=== PATIENT | male | born 1955 | race Caucasian/White ===

== ENCOUNTER 2023-05-10 05:27 | Emergency (ER) | payer BC ==
[~2023-05-10] VITALS: Ht 165.1 cm; Wt 71.7 kg
[2023-05-10 06:23] LABS: BASOPHILS % (AUTO) 0.7 % (0.0-2.0); EOSINOPHILS % (AUTO) 1.1 % (0.0-6.0); HEMATOCRIT 38 % (39-51); HEMOGLOBIN 12.8 g/dL (13.5-17.5); LYMPHOCYTES # (AUTO) 1.4 K/uL (0.8-4.8); LYMPHOCYTES % (AUTO) 35.8 % (20.0-44.0); MEAN CORPUSCULAR HEMOGLOBIN 31 PG (26.0-33.0); MEAN CORPUSCULAR HGB CONC 33 g/dl (31.0-36.0); MEAN CORPUSCULAR VOLUME 91 fL (80-96); MONOCYTES # (AUTO) 0.4 K/uL (0.1-1.30); MONOCYTES % (AUTO) 10.2 % (2.0-12.0); NEUTROPHILS % (AUTO) 52.2 % (43.0-81.0); PLATELET COUNT (AUTO) 107 K/uL (150-450); RED BLOOD CELL COUNT(AUTO) 4.19 MIL/uL (4.5-6.0); RED CELL DISTRIBUTION WIDTH 14.1 % (11.5-15.0); WHITE BLOOD COUNT (AUTO) 3.8 K/uL (4.3-11.0)
[2023-05-10 06:31] LABS: INR 2.07 (0.91-1.10); PARTIAL THROMBOPLASTIN TIME 36.6 SEC (24.3-34.3); PROTHROMBIN TIME 20.9 SECS (9.2-11.1)
[2023-05-10 06:37] LABS: CALCIUM, SERUM 8.8 mg/dL (8.5-10.1); CREATININE 0.7 mg/dL (0.6-1.3); POTASSIUM 3.9 mmol/L (3.5-5.1)
[2023-05-10 06:43] LABS: ALBUMIN 3.6 g/dL (3.4-5.0); BILIRUBIN,DIRECT 0.2 mg/dL (0.0-0.2); TOTAL PROTEIN, SERUM 6.8 g/dL (6.4-8.2)
[2023-05-10] MEDS ORDERED: MORPHINE SULFATE INJ 4 MG/ML DISP.SYRIN ONE ×2 (06:56→10:06)
[2023-05-10] MEDS ORDERED: ONDANSETRON HCL/PF 4 MG/2 ML VIAL ONE ×2 (06:56→10:06)
[2023-05-10] MEDS ORDERED: MORPHINE SULFATE INJ 2 MG/ML DISP.SYRIN IV ONE ×2 (07:00→10:30)
[2023-05-10] MEDS ORDERED: ONDANSETRON HCL/PF 4 MG/2 ML VIAL IV ONE ×2 (07:00→10:30)
[2023-05-10] MEDS ORDERED: IOHEXOL-350 100 ML VIAL IV ONE (07:43)
[2023-05-10] MEDS ORDERED: IV NS 0.9% 250 ML IV ONE (07:44)
[2023-05-10] MEDS ORDERED: IV NS 0.9% 1,000 ML BAG IV ONE ×2 (08:00→12:30)
[2023-05-10] MEDS ORDERED: CARB1CAP7 PO (09:04)
[2023-05-10] MEDS ORDERED: CYAN-51 PO (09:04)
[2023-05-10] MEDS ORDERED: WARF7.5T49 PO (09:04)
[2023-05-10] MEDS ORDERED: RASA1TAB4 PO (09:04)
[2023-05-10] MEDS ORDERED: ROSU5TAB PO (09:04)
[2023-05-10] MEDS ORDERED: AMAN137C PO (09:04)
[2023-05-10] MEDS ORDERED: LOSA50TA39 PO (09:04)
[2023-05-10 15:23] VITALS: BP 129/68; TEMP 97.8; O2SAT 96
== END 2023-05-10 14:50 | disposition short-term general hospital (02) ==
LOC: ER 05:38
DX: E27.49 Other adrenocortical insufficiency (principal); D61.818 Other pancytopenia; R10.9 Unspecified abdominal pain; G20.A1 Parkinson's disease without dyskinesia, without mention of fluctuations; Z88.0 Allergy status to penicillin; Z20.822 Contact with and (suspected) exposure to COVID-19
CPT/HCPCS: 99285; 74177; 96374; 96361; 96375; 87426; 93005; 96376; 85025; 80048; 83690; 80076; 85378; 36415; 84484; 85730; 74176; J2270 ×2; J2405 ×2; J7030 ×2; J7050; Q9967; C9803